=== PATIENT | male | born 1945 | race Caucasian/White ===

== ENCOUNTER 2022-10-09 11:40 | Outpatient (OUT) | payer MEDICARE, OTHER, SELFPAY ==
--- NOTE | 2022-10-09 12:14 | XR_ITS ---
The [place] [id number] Patient Name: HAILEY GARCIA MRN: [id number] date: 1945 Sex: M Assigned Patient Location: [facility] Current Patient Location: [facility] Accession/Order Number: [id number] Exam Date: 10/09/2022 12:00 Report Date: 10/09/2022 13:01 At the request of: ANA DO Procedure: XR lumbar spine 6V w bending EXAMINATION: XR lumbar spine 6V w bending HISTORY: Pain in left hip M25.552 COMPARISON: No relevant comparison available. FINDINGS: BONES: Neutral projection demonstrates 7 mm retrolisthesis of L4 in relation to L5. This reduces to 2 mm with flexion. No acute fracture. Moderate degenerative spondylosis and facet osteoarthropathy DISC SPACES: Mild to moderate multilevel disc space narrowing PARASPINOUS: Negative. No paraspinous abnormality is seen. OTHER: Vascular calcifications XR/XR lumbar spine 6V w bending IMPRESSION: Moderate degenerative changes No transient spondylolisthesis Electronically authenticated by: OLMAN WINN Date: 10/09/2022 13:01
--- NOTE | 2022-10-09 12:14 | XR_ITS ---
The [address] [address] Patient Name: HAILEY GARCIA MRN: [id number] date: 1945 Sex: M Assigned Patient Location: [facility] Current Patient Location: [facility] Accession/Order Number: [id number] Exam Date: 10/09/2022 12:00 Report Date: 10/09/2022 13:03 At the request of: ANA DO Procedure: XR hip LT 2V w/ pelvis PROCEDURE: XR hip LT 2V w/ pelvis COMPARISON: None. HISTORY: Pain in left hip M25.552 FINDINGS: BONES:No acute fracture or dislocation. Mild to moderate bilateral hip osteoarthropathy. SOFT TISSUES:Negative. No visible soft tissue swelling. EFFUSION:None visible. OTHER: Mild vascular calcifications XR/XR hip LT 2V w/ pelvis IMPRESSION: Nnfv-mi-coikzjjk osteoarthritis Electronically authenticated by: OLMAN WINN Date: 10/09/2022 13:03
== END 2022-10-09 11:41 | disposition home or self-care (01) ==
LOC: RAD 11:46
PROVIDERS: PCP Family Medicine; Visit Provider Family Medicine
DX: M25.552 Pain in left hip (principal); M16.12 Unilateral primary osteoarthritis, left hip
CPT/HCPCS: 72114; 73502

== ENCOUNTER 2024-12-16 08:05 | Emergency (ER) | payer MEDICARE, SELFPAY ==
[2024-12-16 08:09] VITALS: BP 184/82; PULSE 64; TEMP 36.5; O2SAT 98; BMI 25.8
--- NOTE | 2024-12-16 08:26 | XR_ITS ---
The [address] [address] Patient Name: HAILEY GARCIA MRN: [id number] date: 1945 Sex: M Assigned Patient Location: ER Current Patient Location: ER Accession/Order Number: [id number] Exam Date: 12/16/2024 08:25 Report Date: 12/16/2024 08:53 At the request of: ERNESTINA LOTT MD Procedure: XR foot LT min 3V LEFT FOOT - 3 views CLINICAL DATA: Left foot pain at the heel with radiation to the arch since jumping and landing on foot in September. COMPARISON: None AP, lateral and oblique views were obtained. There is no acute fracture or dislocation. Minor degenerative changes are visualized including the tiny plantar calcaneal spur. There are no significant soft tissue abnormalities. XR/XR foot LT min 3V IMPRESSION: NO ACUTE BONY INJURY. TINY CALCANEAL SPUR. Impression dictated by: Mara Alvarado M.D. 12/16/2024 8:53 AM Dictation Location: [place] [address] Electronically authenticated by: [id number] Y Date: 12/16/2024 08:53
--- NOTE | 2024-12-16 08:26 | ED.LOWEXI1 ---
HPI HPI - Extremity Injury (Lower) General Chief Complaint: Extremity Injury, Lower Stated Complaint: L FOOT INJURY Time Seen by Provider: 12/16/24 08:18 Source: patient Mode of arrival: walk-in Limitations: no limitations History of Present Illness HPI Narrative: 78-year-old male presented to the ER with left foot pain mostly at the heel area that he has been experiencing since September after he jumped off pavers, at that time the patient was in hurry and apparently was trying to save time and he has been having this pain in the heel that he feels like he have marbles in his shoes when walking The patient denies any other injury Related Data Previous Rx's ?Medication ?Instructions ?Recorded diclofenac sodium 50 mg 50 mg PO Q12H PRN pain #10 tabs 12/16/24 tablet,delayed release Allergies Allergy/AdvReac Type Severity Reaction Status Date / Time prednisone Allergy Unknown MOOD CHANGE Verified 12/16/24 08:14 Review of Systems ROS Status of ROS 10 or more systems reviewed and unremarkable except as noted in history and below PFSH PFSH Social History Little interest or pleasure in doing things: not at all Feeling down, depressed, or hopeless: not at all Exam Narrative Exam Narrative: Nurses notes and vital signs reviewed and patient is not hypoxic. General: Well-appearing and in no apparent distress. Left lower extremity; the patient have no swelling appreciated the ankle and toes are within normal there is no swelling and there is full range of movement, capillary fill within normal and the patient have good anterior tibial pulse, Neurological: A&O x4. No cranial nerve dysfunction observed. No truncal ataxia. Moves all extremities. Sensation intact. Psychiatric: Cooperative and interactive. Normal mood and affect. Constitutional Vital Signs, click to edit/add: Last Vital Signs Temp 97.7 F 12/16/24 08:09 Pulse 64 12/16/24 08:09 Resp 18 12/16/24 08:09 BP 184/82 H 12/16/24 08:09 Pulse Ox 98 12/16/24 08:09 O2 Del Method Room Air 12/16/24 08:09 Course Vital Signs Vital signs: Vital Signs Temperature 97.7 F 12/16/24 08:09 Pulse Rate 64 12/16/24 08:09 Respiratory Rate 18 12/16/24 08:09 Blood Pressure 184/82 H 12/16/24 08:09 Pulse Oximetry 98 12/16/24 08:09 Oxygen Delivery Method Room Air 12/16/24 08:09 Temperature 97.7 F 12/16/24 08:09 Pulse Rate 64 12/16/24 08:09 Respiratory Rate 18 12/16/24 08:09 Blood Pressure 184/82 H 12/16/24 08:09 Pulse Oximetry 98 12/16/24 08:09 Oxygen Delivery Method Room Air 12/16/24 08:09 MDM - Extremity Injury (Lower) MDM Narrative Medical decision making narrative: The x-ray of the patient foot showed that he have a calcaneal spur but there is no other acute pathology Right now the patient will be treated with supportive care with Voltaren twice daily referred to podiatry as outpatient The patient to follow-up with the primary care within 2 to 3 days and to come back to the ER in case of any worsening of the current symptoms or any new symptoms or concerns Discharge Plan Discharge Chief Complaint: Extremity Injury, Lower Clinical Impression: Calcaneal spur Patient Disposition: Home, Self-Care Time of Disposition Decision: 09:04 Condition: Good Mode of Transportation: Private Vehicle Prescriptions / Home Meds: New diclofenac sodium 50 mg tablet,delayed release (DR/EC) 50 mg PO Q12H PRN (Reason: pain) Qty: 10 0RF Print Language: Guatemalan Instructions: Heel Spur (ED) Referrals: Romel Singh DO [Primary Care Provider] - 1 week Ezequiel Ruff DPM [Physician, Podiatry] - 1 week Discharge Date/Time: 12/16/24 09:10
== END 2024-12-16 09:10 | disposition home or self-care (01) ==
PROVIDERS: Emergency Provider Emergency Medicine; PCP Family Medicine
DX: M77.32 Calcaneal spur, left foot (principal)
CPT/HCPCS: 73630; 99283